=== PATIENT | female | born 1965 | race Caucasian/White ===

== ENCOUNTER 2018-03-16 19:25 | Emergency (ER) | payer OTHER ==
[~2018-03-16] VITALS: Ht 160 cm; Wt 78.5 kg
--- NOTE | ~2018-03-16 | EKG ---
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
[2018-03-16] MEDS ORDERED: ALLEGRA-D 24 H1 EACH PO (20:05)
[2018-03-16 20:21] LABS: ABSOLUTE NEUTROPHILS 3.3 thou/uL (1.4-8.2); BASOPHILS 1.1 % (0.0-2.0); EOSINOPHILS 1.6 % (0.0-3.0); HEMATOCRIT 41.9 % (37.0-47.0); HEMOGLOBIN 14.3 gm/dL (12.0-15.0); LYMPHOCYTES 32.2 % (24.0-44.0); MCH 30.1 pg (26.0-34.0); MCHC 34.1 g/dL (28.0-37.0); MCV 88.4 fL (80.0-100.0); MONOCYTES 7.3 % (1.0-8.0); PLATELET COUNT 149 thou/uL (150-400); POLYS 57.8 % (36.0-66.0); RBC 4.74 mil/uL (4.20-5.00); RDW 12.8 % (10.5-14.5); WBC 5.7 thou/uL (4.0-11.0)
[2018-03-16 20:29] LABS: ANION GAP 9 mmol/L (7-16); BUN 11 mg/dL (7-18); CALCIUM 8.9 mg/dL (8.5-10.1); CHLORIDE 105 mmol/L (98-107); CO2 28 mmol/L (21-32); CREATININE 0.8 mg/dL (0.6-1.0); GLUCOSE 113 mg/dL (74-106); POTASSIUM 3.4 mmol/L (3.5-5.1); SODIUM 142 mmol/L (136-145)
[2018-03-16 20:38] LABS: ALBUMIN 4.2 g/dL (3.4-5.0); SGOT 22 U/L (15-37); SGPT 38 U/L (30-65); TOTAL BILIRUBIN 0.2 mg/dL (<0.1-1.0); TOTAL PROTEIN 7.4 g/dL (6.4-8.2); TROPONIN-I < 0.04 ng/mL (<0.06)
[2018-03-16 22:04] VITALS: BP 151/85
== END 2018-03-16 22:07 | disposition home or self-care (01) ==
LOC: ER 19:25
PROVIDERS: Physician Assistant
DX: R20.2 Paresthesia of skin (principal); R20.0 Anesthesia of skin; R06.02 Shortness of breath; Z88.1 Allergy status to other antibiotic agents